=== PATIENT | male | born 2000 | race Native Hawaiian/Other Pacific Islander ===

== ENCOUNTER 2020-09-24 09:41 | Emergency (ER) | payer SELFPAY ==
[2020-09-24 10:00] VITALS: BP 137/56
--- NOTE | 2020-09-24 10:38 | Emergency Department Report ---
Suture/Staple Removal - HPI Chief Complaint: Laceration/Recheck/Suture Stated Complaint: SUTURE REMOVAL Time Seen by Provider: 09/24/20 10:08 When Sutures or Lenny Placed: 8-10 Days Ago Wound Location: Lower lip ED Review of Systems ROS: Stated complaint: SUTURE REMOVAL Other details as noted in HPI Comment: All other systems reviewed and negative Constitutional: denies: chills, fever Eyes: denies: eye pain, eye discharge, vision change Respiratory: denies: cough, shortness of breath, wheezing Cardiovascular: denies: chest pain, palpitations Skin: other (Lip laceration ) ED Past Medical Hx - Social History Smoking Status: Current Some Day Smoker Substance Use Type: None Suture Removal Exam - Exam General: Vital signs noted. No distress. Alert and acting appropriately. Wound: Yes Pathologic Erythema (mild), No Tenderness, No Drainage, No Pus, No Wound Dehiscence Other Systems: All other systems reviewed and are unremarkable. ED Course Vital Signs 09/24/20 09:58 Temperature 98.5 F Pulse Rate 71 Respiratory 18 Rate Blood Pressure 137/56 O2 Sat by Pulse 100 Oximetry - Procedure Description Procedures done: Simple suture removal -- Sutures noted to lower lip. All removed. wound healing well without any signs of infection. patient tolerated well. No complications Critical care attestation.: If time is entered above; I have spent that time in minutes in the direct care of this critically ill patient, excluding procedure time. ED Disposition Clinical Impression: Visit for suture removal Disposition: DC-01 TO HOME OR SELFCARE Is pt being admited?: No Does the pt Need Aspirin: No Condition: Stable Instructions: Wound Closure Removal, Care After Additional Instructions: Continue to keep area clean with soap and water. Apply thin layer of neosporin 2-3 times per day. Follow up with PCP as needed. Return to ED if worse. Referrals: MALIK CORRALES MD [Staff Physician] - 3-5 Days Forms: Work/School Release Form(ED) Time of Disposition: 10:37
== END 2020-09-24 11:00 | disposition home or self-care (01) ==
LOC: ED 09:41
DX: S01.511D Laceration without foreign body of lip, subsequent encounter (principal); F17.200 Nicotine dependence, unspecified, uncomplicated; X58.XXXD Exposure to other specified factors, subsequent encounter